=== PATIENT | male | born 1990 | race Caucasian/White ===

== ENCOUNTER 2020-01-27 19:14 | Emergency (ER) | payer OTHER ==
[~2020-01-27] VITALS: Ht 180.3 cm; Wt 77.1 kg
[2020-01-27] MEDS ORDERED: CIPROFLOXACIN500 M1 PO (19:57)
[2020-01-27 20:07] VITALS: BP 121/70
== END 2020-01-27 20:08 | disposition home or self-care (01) ==
LOC: M.ERS 19:14
DX: S91.331A Puncture wound without foreign body, right foot, initial encounter (principal); Z88.0 Allergy status to penicillin; W22.8XXA Striking against or struck by other objects, initial encounter; Y93.89 Activity, other specified; Y92.89 Other specified places as the place of occurrence of the external cause; Y99.8 Other external cause status